=== PATIENT | male | born 1985 | race Caucasian/White ===

== ENCOUNTER 2017-07-05 19:20 | Emergency (ER) | payer SELFPAY ==
--- NOTE | 2017-07-05 20:22 | ERNOTE ---
Lower Extremity HPI - General Lower Extremities Pain: knee: left Time Seen by Provider: 07/05/17 20:20 Source: patient Exam Limitations: no limitations - Immun/Allergies/Home Medications Immunizations: IMMUNIZATION HX Immunizations Up to Date Yes Allergies/Adverse Reactions: Allergies Allergy/AdvReac Type Severity Reaction Status Date / Time No Known Allergies Allergy Unverified 07/05/17 19:41 Home Medications: HOME MEDICATIONS FLUoxetine HCL [Prozac] 20 mg PO DAILY 07/05/17 [Last Taken Unknown] - History of Present Illness Narrative: Fell at work hurt his left knee. Denies other injuries Occurred: yesterday Location of Incident: work Method of Injury: Reports: fell, twisted Reason for Fall: Reports: other - caught pants on a shelf Loss of Consciousness: Reports: no loss of consciousness Modifying Factors - (Improves): Reports: immobilization Modifying Factors - (Worsens): Reports: movement Other Injuries: Reports: none Subsequent Symptoms: Denies: sensory loss Review of Systems - Review of Systems Constitutional: Present: no symptoms reported Respiratory: Present: no symptoms reported Musculoskeletal: Present: See HPI. Absent: back pain, neck pain Skin: Absent: change in color Neurological: Absent: numbness, tingling - Patient's Past Medical History Patient History - Medical: Anxiety Patient History - Cardiac/Respiratory: Hypertension Patient History - Cancer: No Hx of Cancer Patient History - Surgical Procedures: T & A - Social History Living Situations: home Smoking Status: Current every day smoker Patient requests Smoking Cessation Consult: No Initiate information on Smoking Cessation: No Alcohol Use: occasionally Drug Use: none - Immunizations Immunizations Up to Date: Yes Physical Exam - Physical Exam General Appearance: Present: wd/wn, alert, no apparent distress Head Exam: Present: normal inspection, no evidence of injury Neck: Present: normal inspection, supple, full range of motion Respiratory: Present: no respiratory distress, no accessory muscle use Back Exam: Present: normal inspection, normal range of motion Extremity Exam: Present: normal except - - left knee diffuse tenderness, no effusion, decreased range of motion - left knee flexion 120 degrees, full extension. Neurological Exam: Present: alert, oriented, normal mood/affect Skin Exam: Present: normal color, warm/dry Lymphatic Exam: Present: no adenopathy ED Progress - Vital Signs Vital Signs: Vital Signs 07/05/17 19:36 Pulse Rate 84 Respiratory 18 Rate Blood Pressure 136/73 O2 Sat by Pulse 97 Oximetry - X-Ray X-Ray #1 X-Ray: knee - left Interpretation: Interp. by me X-ray Comments: decreased joint space for age but symmetrical, no acute changes. no fracture or dislocation - Progress/Reassessment Chief Complaint: Lower Extremity Pain/ Injury Progress:: Improved Departure Clinical Impression: Sprain and strain of other specified sites of knee and leg - Departure Disposition: Home self-care Condition: Good Instructions: Knee Pain Additional Instructions: Use the JOSELO wrap when you are up on your feet for 3-5 days or until feeling better. You may take ibuprofen 600 mg 3 times a day for pain. See your regular doctor as needed if not improving.
[2017-07-05 20:43] VITALS: BP 132/75
== END 2017-07-05 20:37 | disposition home or self-care (01) ==
LOC: ER 19:20
DX: S83.8X2A Sprain of other specified parts of left knee, initial encounter (principal); W19.XXXA Unspecified fall, initial encounter; Y93.9 Activity, unspecified; Y92.9 Unspecified place or not applicable; Y99.0 Civilian activity done for income or pay; F17.200 Nicotine dependence, unspecified, uncomplicated